=== PATIENT | male | born 1935 | race Caucasian/White ===

== ENCOUNTER 2018-01-17 10:54 | Day surgery (SDC) | payer OTHER ==
[~2018-01-17 10:54] MED LIST: HYDR12.56 PO; METO25 PO; OMEP20TA PO; TRAM50 PO; TRAZ50TA4 PO
[2018-01-17] MEDS ORDERED: OMEP20TA93 PO (11:43)
[2018-01-17] MEDS ORDERED: DOXA1TAB43 PO (11:43)
[2018-01-17] MEDS ORDERED: SIMV40TA PO (11:43)
[2018-01-17] MEDS ORDERED: CHLORHEXIDINE GLUCONATE 2 % 1 PACK (2 CLOTHS) TOPICAL SCH (11:45)
[2018-01-17] MEDS ORDERED: ceFAZolin 2 GM PREMIX 50 ML IV SCH (11:45)
[2018-01-17] MEDS ORDERED: MUPIROCIN 2% OINT 1 APPLIC/GM SYR NASAL SCH (11:45)
[2018-01-17] MEDS ORDERED: POVIDONE IODINE 5% (ANTISEPSIS KIT) 4 APPLICATIONS EACH NARE SCH (11:45)
[2018-01-17] MEDS ORDERED: NS 1000 ML IV SCH (11:45)
[2018-01-17] MEDS ORDERED: hydrALAZINE HCL 20 MG/ML VIAL ONE (12:54)
[2018-01-17] MEDS ORDERED: MIDAZOLAM HCL 5 MG/ML VIAL (1 ML) ONE (12:54)
[2018-01-17] MEDS ORDERED: hydrALAZINE HCL 20 MG/ML VIAL IV PUSH ONE (12:59)
[2018-01-17] MEDS ORDERED: MIDAZOLAM HCL 5 MG/ML VIAL (1 ML) IV PUSH ONE ×2 (13:01→13:06)
--- NOTE | 2018-01-17 13:37 | MA ---
cc: Paddy Jarrell MD DATE: 01/17/2018 INDICATION: Atrial fibrillation detection. PROCEDURE PERFORMED: 1. 15 minutes of moderate IV sedation. 2. Loop recorder insertion. DESCRIPTION OF PROCEDURE: The patient was brought to the doc in the postabsorptive state. After informed consent was obtained, a [employer] LINQ loop recorder was inserted subcutaneously in the left chest for sedation. 2 mg of Versed and 15 mcg of fentanyl was used. The patient tolerated the procedure well without any apparent complications. Tachybrady pause and atrial fibrillation detection was enabled. The initial R-wave was 0.21 millivolts. The serial number was [id number]. Paddy Jarrell MD BI/DL , 01:14 PM , 01:36 PM
== END 2018-01-17 14:31 | disposition home or self-care (01) ==
LOC: HDOC 10:54 → HDIC 10:55 → HDOC 14:31
PROVIDERS: ATTEND Nuclear Medicine Nuclear Cardiology
DX: I48.91 Unspecified atrial fibrillation (principal); I65.29 Occlusion and stenosis of unspecified carotid artery; E78.5 Hyperlipidemia, unspecified; I47.2 Ventricular tachycardia; R51 Headache; I11.9 Hypertensive heart disease without heart failure; R42 Dizziness and giddiness; R06.00 Dyspnea, unspecified
CPT/HCPCS: 33282; 99152; C1764; J0690; J0360; J2250; J3010